=== PATIENT | female | born 1925 | race Caucasian/White ===

== ENCOUNTER → 2017-03-05 | Outpatient (CLI) | payer MEDICARE, OTHER ==
[~2017-03-05] MED LIST: AMOX500C2 PO; ASP325T; ASP325T PO; AZIT-21 PO; CALC-80; CATHETER FLUSH 10 ML SYR IV PRN; CEFD300C3 PO; CEPH500C PO; CYCL5TAB PO; EST.625T; EST.625T PO; FERR27TA; HYDR-757 PO; IOHEXOL 350 MG/ML 100 ML (OMNIPAQUE 350) VIAL IV ONE; MULT-608; MULT-608 PO; NS 100 ML (IVPB) BAG IV ONE
--- NOTE | 2017-03-05 10:27 | Diagnostic Imaging Report ---
PROCEDURE: CT chest with contrast only. TECHNIQUE: Multiple contiguous axial images were obtained through the chest after administration of intravenous contrast. Indication: Followup left lung mass. Comparison: 08/20/2015 through 09/21/2010. Discussion: Mild emphysema is again noted. Interval development of a large mass within the right upper lobe measuring 7.6 x 4.2 cm. There is an additional mass within the right suprahilar region within the right upper lobe measuring 4.3 x 3.2 cm. There is additional mild patchy opacity and interstitial thickening within the right upper lobe posteriorly. Chronic mild atelectasis is noted within the right middle lobe. There is scattered nodularity noted bilaterally measuring up to 3 mm. Calcified nodules are noted within the right lower lobe, consistent with granulomatous disease. Solid mass within the left lower lobe measures 6.4 x 4.0 cm, new and/or increased from prior exam. The previous left infrahilar mass shows significant decrease in size with residual parenchymal scarring and fibrotic changes present. There is mild pleural thickening noted posteriorly within the left lung base. The left upper lobe is well-aerated. Normal heart size. There is mild thickening of the right hilum which is likely due to adenopathy. Mild mediastinal adenopathy is present with the largest precarinal lymph node measuring 1.7 x 1.1 cm. The thoracic aorta is normal in caliber and configuration. Pulmonary arteries are not dilated. Low-attenuation elongated focus along the posterior right hepatic dome appears stable, likely scarring or a benign process. Cystic change within the mid left kidney is stable. The visualized upper abdomen is unremarkable otherwise. Chronic mild compression fracture of the T9 vertebral body, stable. No acute osseous abnormality identified. Impression: 1. Interval development of solid appearing masses within the bilateral lungs, primarily involving the right upper lobe and left lower lobe, as described, is highly concerning for malignancy. 2. Mild right hilar and mediastinal adenopathy. 3. Mild emphysema. 4. Previous left infrahilar mass shows near complete resolution with extensive fibrotic changes within the lung parenchyma in the region of the previous mass. There is mild pleural thickening noted along the left lung base. Dictated by: Dictated on workstation # [id number]
== END ==
LOC: RAD 08:55
PROVIDERS: ATTEND Nurse Practitioner Family
DX: R91.8 Other nonspecific abnormal finding of lung field (principal)
CPT/HCPCS: 71260